=== PATIENT | female | born 2000 | race Caucasian/White ===

== ENCOUNTER 2025-06-13 00:19 | Emergency (ER) | payer MEDICAID ==
[~2025-06-13] VITALS: Ht 165.1 cm; Wt 80.4 kg
[2025-06-13 00:23] VITALS: BP 114/48; PULSE 67; RESP 16; TEMP 37.1; O2SAT 100; O2SAT 99
[2025-06-13] MEDS: KETOROLAC 15MG/ML VIAL IM ONE (03:03)
[2025-06-13] MEDS: LIDOCAINE HCL 1% 20ML VIAL INFIL ONE (03:05)
== END 2025-06-13 03:06 | disposition left against medical advice (07) ==
LOC: ER 00:19
DX: S00.452A Superficial foreign body of left ear, initial encounter (principal); W45.8XXA Other foreign body or object entering through skin, initial encounter; Y93.89 Activity, other specified; Y92.89 Other specified places as the place of occurrence of the external cause; Y99.8 Other external cause status
CPT/HCPCS: 99282; J1885; J2003